=== PATIENT | female | born 2000 | race Caucasian/White ===

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

== ENCOUNTER 2021-03-08 11:20 | Outpatient (CLI) | payer BC, SELFPAY ==
--- NOTE | ~2021-03-08 | US_ITS ---
US breast RT limited DATE: 03/08/2021 11:48 INDICATION: Right breast lump at 12:00 TECHNIQUE: High-resolution ultrasound imaging from 12:00 to 3:00 (upper inner quadrant) COMPARISON: None FINDINGS: No solid mass, suspicious shadowing, cyst or other significant sonographic finding is noted . IMPRESSION: BI-RADS Category 1: Negative Recommendation: Routine mammographic screening beginning at age 40 Reviewed, dictated and finalized at [facility]. Reviewed, dictated and finalized at location [facility].
== END 2021-03-08 11:21 | disposition home or self-care (01) ==
PROVIDERS: PCP Nurse Practitioner; Visit Provider Nurse Practitioner Obstetrics & Gynecology
DX: N63.15 Unspecified lump in the right breast, overlapping quadrants (principal)
CPT/HCPCS: 76642